=== PATIENT | female | born 1980 | race Caucasian/White ===

== ENCOUNTER 2016-07-26 18:42 | Emergency (ER) | payer SELFPAY ==
[~2016-07-26] VITALS: Ht 167.6 cm; Wt 104.5 kg
[~2016-07-26 18:42] MED LIST: CEPH-460 PO; IBUP800T23 PO; METF500T PO; VENTAER INH
[2016-07-26 18:45] VITALS: BP 147/83; PULSE 97; RESP 18; TEMP 97.5; O2SAT 95
[2016-07-26] MEDS ORDERED: ORPHENADRINE INJ 60 MG/2 ML AMP IM ONE (19:30)
[2016-07-26] MEDS ORDERED: KETOROLAC TROMETHAMINE 60 MG/2 ML (IM) VIAL IM ONE (19:30)
[2016-07-26] MEDS ORDERED: LIDO5DIS35 TOPICAL (19:36)
[2016-07-26] MEDS ORDERED: DICL75TA PO (19:36)
[2016-07-26] MEDS ORDERED: BACL10TA PO (19:36)
--- NOTE | 2016-07-26 19:56 | PD ---
HPI Chief Complaint: Back/ Neck Pain or Injury Time Seen by Provider: 19:30 Travel History International Travel<30 days: No Contact w/Intl Traveler<30days: No Traveled to known affect area: No History of Present Illness HPI This is a 35-year-old female who presents for evaluation of left lower back pain. She reports that yesterday she was changing the sheets on her bed, bending over, when she began developing a sharp pain in her left lower back and tailbone region. The pain is a sharp pain that is worse with movement such as lying down, sitting up. She denies any bowel or bladder incontinence or saddle anesthesia, abdominal pain, nausea or vomiting. She has tried using over-the- counter medications for symptom relief but symptoms persisted which prompted evaluation. She does note a history of kidney stones but this pain does not feel similar, no hematuria, no flank pain. She has no other complaints at this time. PFSH Past Medical History Anemia: Yes Cardiovascular Problems: Yes Diabetes: Yes Patient Takes Glucophage: No Diminished Hearing: No Hypertension: Yes Respiratory: Yes (asthma) Immunizations Current: Yes Tetanus Vaccination: Unknown Influenza Vaccination: Yes ?: Unknown LMP: 06/07/16 Menopausal: Yes Ovarian Cysts: Yes Dilation and Curettage (D&C): Yes Past Surgical History Cholecystectomy: Yes (2005) Gynecologic Surgery: Yes (OVARIAN AND UTERINE CYST REMOVAL) Social History Alcohol Use: No Tobacco Use: No Substance Use: No Allergies-Medications (Allergen,Severity, Reaction): Coded Allergies: Augmentin (Verified Allergy, Severe, 07/26/16) Ciprofloxacin (Verified Allergy, Severe, Swelling THROAT, 07/26/16) Dilaudid (Verified Allergy, Severe, 07/26/16) Morphine (Verified Allergy, Severe, SWELLING OF THROAT, RESP. DEPPRESSION , 07/26/16) Penicillin (Verified Allergy, Severe, Swelling, 07/26/16) Vaccines (Porcine) (Verified Allergy, Severe, SWELLING OF EXTREMITY, ) PRESERVATIVE CAUSES A REACTION Zithromax (Verified Allergy, Severe, RASH, REDDNESS, 07/26/16) Doxycycline (Verified Allergy, Intermediate, vomiting, 07/26/16) Cortisone (Verified Adverse Reaction, Unknown, 07/26/16) increases sugar Reported Meds & Prescriptions Reported Meds & Active Scripts Active Lidoderm Patch 12 HR (Lidocaine) 5% Patch 1 Patch TOPICAL DAILY Remove patch after 12 hours Baclofen 10 Mg Tab 10 Mg PO Q8HR PRN [address] (Diclofenac Sodium) 75 Mg Tabdr 75 Mg PO BID 10 Days Review of Systems Except as stated in HPI: all other systems reviewed are Neg Physical Exam Narrative GENERAL: This is a well-developed well-nourished female who appears to be in some pain. Her vital signs have been reviewed. SKIN: Warm and dry. There is no bruising or soft tissue swelling. HEAD: Atraumatic. Normocephalic. CARDIOVASCULAR: Regular rate and rhythm. No murmur appreciated. RESPIRATORY: No accessory muscle use. Clear to auscultation. Breath sounds equal bilaterally. GASTROINTESTINAL: Abdomen soft, non-tender, nondistended. MUSCULOSKELETAL: No obvious deformities. There is no thoracic or lumbar midline tenderness. There is tenderness to palpation of the left lumbar paravertebral musculature and left buttocks musculature. Patient retains full range of motion of the lower extremities. She has pain when lying down and sitting up. There is no CVA tenderness. NEUROLOGICAL: Awake and alert. No obvious cranial nerve deficits. Motor grossly within normal limits. Normal speech. Data Data Last Documented VS Vital Signs Date Time Temp Pulse Resp B/P Pulse Ox O2 Delivery O2 Flow Rate FiO2 07/26/16 18:45 97.5 97 18 147/83 95 Room Air Orders Ketorolac Inj (Toradol Inj) (07/26/16 19:30) Orphenadrine Inj (Norflex Inj) (07/26/16 19:30) MDM Medical Decision Making Medical Screen Exam Complete: Yes Emergency Medical Condition: Yes Medical Record Reviewed: Yes Differential Diagnosis Lumbar strain, lumbar spasm, herniated nucleus pulposus, spinal stenosis, renal stone, AAA Narrative Course This is a 35-year-old female who developed left lower back pain after bending over to change her bed sheets yesterday. There was no trauma. On examination she has tenderness to palpation in the left lumbar paravertebral musculature, left buttocks musculature in the sacroiliac region that is reproducible with bending over, lying down, certainly consistent with a lumbar strain by history and examination. She has no symptoms to suggest spinal cord injury. She has no symptoms or examination findings to suggest a lumbar fracture. Renal stone was considered as well as given her history of renal stones however her symptoms and history do not suggest this. The plan was to treat the patient symptomatically with muscle relaxants, NSAIDs, Lidoderm patches. The patient's was requesting x-ray or MRI imaging to "make sure nothing is wrong." I explained the purpose of both of these tests and how neither one of them would help diagnose the current issue as there is no evidence of spinal cord injury or bony injury based on the history or examination. The patient's requested to speak to my attending physician and so Dr. Montalvo examined the patient as well and agrees with the treatment plan as laid out. I did discuss how the mechanism of injury has caused this pain and I recommended body corporate manager changes that would help prevent lower back strains in the future. We also discussed symptoms that would warrant return to the emergency room. Otherwise the patient can follow up with her primary care physician. She will be given a note for work as she works as a housekeeper/laundry assistant. Diagnosis Primary Impression: Lumbar strain Qualified Code: S39.012A - Lumbar strain, initial encounter Referrals: Primary Care Physician Departure Forms: Tests/Procedures, Work Release Enter return to work date: Jul 29, 2016 Additional Instructions: As discussed, avoid activities that increase pressure in her lower back such as bending over, slouching while sitting. When lifting left utilizing a squatting position. Avoid heavy lifting or strenuous activity. Use the medication as needed. Do not drive or drink alcohol when taking baclofen. Take diclofenac with meals. Follow-up with your primary care physician in one to 2 weeks. If you develop radicular symptoms such as pain/tingling radiating down the legs, outpatient nonemergent MRI imaging may be useful to help with diagnosis although many time the symptoms resolve on their own. As discussed, lumbar strains can take some time to heal. Signs and symptoms that would warrant returning to the emergency room include incontinence of urine/stool, weakness in the extremities. Med/Other Pt SpecificInfo: Prescription(s) given Scripts Lidocaine Patch 12 HR (Lidoderm Patch 12 HR)5% Patch1 Patch TOPICAL DAILY #1 BOX Ref 0 Remove patch after 12 hours Prov:Elisha Montalvo MD 07/26/16 Baclofen 10 Mg Tab10 Mg PO Q8HR PRN (MUSCLE SPASM) 10 Days Ref 0 Prov:Elisha Montalvo MD 1/8/[address] 75 Mg Tabdr75 Mg PO BID 10 Days Ref 0 Prov:Elisha Montalvo MD 07/26/16 Disposition: 01 DISCHARGE HOME Condition: Stable Jatinder Marquez Jul 26, 2016 19:56
== END 2016-07-26 20:06 | disposition home or self-care (01) ==
LOC: NEPB 18:42
DX: S39.012A Strain of muscle, fascia and tendon of lower back, initial encounter (principal); E11.9 Type 2 diabetes mellitus without complications; I10 Essential (primary) hypertension; Z87.442 Personal history of urinary calculi; Z86.2 Personal history of diseases of the blood and blood-forming organs and certain disorders involving the immune mechanism; Z87.09 Personal history of other diseases of the respiratory system; X50.1XXA Overexertion from prolonged static or awkward postures, initial encounter
CPT/HCPCS: 96372; 99283; J1885; J2360

== ENCOUNTER 2017-02-05 19:39 | Emergency (ER) | payer SELFPAY ==
[~2017-02-05] VITALS: Ht 167.6 cm; Wt 104.5 kg
[~2017-02-05 19:39] MED LIST changes: +BACL10TA PO; -CEPH-460 PO; +DICL75TA PO; -IBUP800T23 PO; +LIDO5DIS35 TOPICAL; -METF500T PO; -VENTAER INH
[2017-02-05 19:41] VITALS: BP 168/93; PULSE 75; RESP 18; TEMP 97.7; O2SAT 100
[2017-02-05] MEDS ORDERED: ALBUAER3 INH (20:38)
--- NOTE | 2017-02-05 21:14 | PD ---
HPI Chief Complaint: Respiratory Distress Time Seen by Provider: 21:10 Travel History International Travel<30 days: No Contact w/Intl Traveler<30days: No Traveled to known affect area: No History of Present Illness HPI Patient comes in complaining of shortness of breath ongoing for 6 days. Patient states she does have a history of asthma initially felt similar however is getting progressively worse. Patient was seen at different ER 6 days ago was told she had bronchitis and to use her nebulizer. Patient states she's been doing this however symptoms are not getting better and feels that they're getting worse. Patient reports associated dry cough, fever of 101, and dyspnea on exertion. Patient denies any edema, chest pain, abdominal pain, loss change in bowel or bladder, nausea, vomiting, neck pain, sore throat, headache, or numbness or tingling anywhere. PFSH Past Medical History Anemia: Yes Asthma: Yes Cardiovascular Problems: Yes Diabetes: Yes Patient Takes Glucophage: No Diminished Hearing: No Hypertension: Yes Kidney Stones: Yes Respiratory: Yes (ASTHMA) Immunizations Current: Yes Tetanus Vaccination: Unknown Influenza Vaccination: Yes ?: Not Menopausal: Yes Ovarian Cysts: Yes Dilation and Curettage (D&C): Yes Past Surgical History Cholecystectomy: Yes (2005) Gynecologic Surgery: Yes (OVARIAN AND UTERINE CYST REMOVAL) Other Surgery: Yes (R BREST TUMOR REMOVED 2007) Social History Alcohol Use: No Tobacco Use: No Substance Use: No Allergies-Medications (Allergen,Severity, Reaction): Coded Allergies: Augmentin (Verified Allergy, Severe, 02/05/17) Ciprofloxacin (Verified Allergy, Severe, Swelling THROAT, 02/05/17) Dilaudid (Verified Allergy, Severe, 02/05/17) Erythromycin (Verified Allergy, Severe, Rash, 02/05/17) Flu Vaccine (Verified Allergy, Severe, Rash, 02/05/17) Morphine (Verified Allergy, Severe, SWELLING OF THROAT, RESP. DEPPRESSION , 02/05/17) Penicillin (Verified Allergy, Severe, Swelling, 02/05/17) Percocet (Verified Allergy, Severe, Rash, 02/05/17) Vaccines (Porcine) (Verified Allergy, Severe, SWELLING OF EXTREMITY, ) PRESERVATIVE CAUSES A REACTION Zithromax (Verified Allergy, Severe, RASH, REDDNESS, 02/05/17) Doxycycline (Verified Allergy, Intermediate, vomiting, 02/05/17) Cortisone (Verified Adverse Reaction, Unknown, 02/05/17) increases sugar Reported Meds & Prescriptions Reported Meds & Active Scripts Active Keflex (Cephalexin) 500 Mg Cap 500 Mg PO Q12H 10 Days Medrol Dosepak (Methylprednisolone) 4 Mg Dspk 4 Mg PO DIRECTED Per Pharmacist direction Reported Proair Hfa 8.5 GM Inh (Albuterol Sulfate) 90 Mcg/Act Aer 2 Puff INH Q4-6H PRN 108 mcg/actuation Review of Systems Except as stated in HPI: all other systems reviewed are Neg Physical Exam Narrative GENERAL: Well-developed, overly nourished, in no acute distress, and non-ill appearing. SKIN: Focused skin assessment warm and dry. HEAD: Atraumatic. Normocephalic. EYES: Pupils equal and round. EOMI. No scleral icterus. No injection or drainage. ENT: No nasal bleeding or discharge. Mucous membranes pink and moist. NECK: Trachea midline. Supple. No nuclear rigidity. CARDIOVASCULAR: Regular rate and rhythm. No murmur appreciated. RESPIRATORY: No accessory muscle use. No respiratory distress. Decreased breath sounds throughout. Breath sounds equal bilaterally. MUSCULOSKELETAL: No obvious deformities. No clubbing. No cyanosis. No edema. Full range of motion. NEUROLOGICAL: Awake and alert. No obvious cranial nerve deficits. Motor grossly within normal limits. Normal speech. PSYCHIATRIC: Appropriate mood and affect; insight and judgment normal. Data Data Last Documented VS Vital Signs Date Time Temp Pulse Resp B/P Pulse Ox O2 Delivery O2 Flow Rate FiO2 02/05/17 22:45 70 18 149/70 98 Room Air 02/05/17 19:41 97.7 Orders Albuterol-Ipratropium Neb (Duoneb Neb) (02/05/17 21:15) Prednisone (Deltasone) (02/05/17 21:15) Chest, Single Ap (02/05/17 ) [facility] Medical Decision Making Medical Screen Exam Complete: Yes Emergency Medical Condition: Yes Interpretation(s) Chest x-ray by the radiologist shows: Normal examination. Differential Diagnosis Asthma exacerbation, CHF exacerbation, pneumonia, pneumothorax, other Narrative Course The patient looks great and improved well with Nebulizer and steroid medication. The patient is moving air well and in no distress nor significant dyspnea, and oxygen saturation is within normal limits. There is no clinical evidence to suggest pneumonia at this time. Diagnosis, plan of care and management were discussed with the patient who agreed with plan and feels better and ready to go home. The patient was instructed to return if worsen, worsening difficulty breathing or wheezing, persistent fever, chest pain or as needed. Patient in no obvious distress upon re-evaluation. All pertinent Radiology result(s) discussed with patient/family. Patient was asked if they wanted to speak to my attending, which the patient did not wish to do at this time. Any questions/concerns in reference to patient diagnosis/condition discussed and clarified prior to patient's discharge. Reinforced sheer importance of close follow up with patient's primary physician or primary care clinic. Instructed patient to return to ED immediately, if symptoms return/worsen. Pt showed understanding of above instructions. Further instructions and recommendations were detailed in discharge paperwork. Pt ambulated without difficulty out of ED at discharge. Diagnosis Primary Impression: Asthma exacerbation Patient Instructions: Asthma (ED), General Instructions Additional Instructions: Follow-up with your primary care physician in 3-5 days for reevaluation. Take all medication as prescribed. Return to the emergency department if symptoms get worse. Med/Other Pt SpecificInfo: Prescription(s) given Scripts Cephalexin (Keflex)500 Mg Iuz667 Mg PO Q12H 10 Days Ref 0 Prov:Mariia Nnuo DO 02/05/17 Methylprednisolone Dosepak (Medrol Dosepak)4 Mg Dspk4 Mg PO DIRECTED #1 DSPK Ref 0 Per Pharmacist direction Prov:Mariia Nuno DO 02/05/17 Disposition: 01 DISCHARGE HOME Condition: Stable Bj Giordano Feb 05, 2017 21:14
[2017-02-05] MEDS ORDERED: RESP: ALBUTEROL 2.5 MG/IPRATROPIUM 0.5 MG NEB (SCH) INH ONE (21:15)
[2017-02-05] MEDS ORDERED: predniSONE 20 MG TAB PO ONE (21:15)
--- NOTE | 2017-02-05 21:41 | RADRPT ---
EXAM DATE/TIME: 02/05/2017 21:34 [facility] COMPARISON: No previous studies available for comparison. INDICATIONS : Shortness of breath for 1 week MEDICAL HISTORY : Asthma SURGICAL HISTORY : None. ENCOUNTER: Initial ACUITY: 1 week PAIN SCORE: 0/10 LOCATION: Bilateral chest FINDINGS: A single view of the chest demonstrates the lungs to be symmetrically aerated without evidence of mas s, infiltrate or effusion. The cardiomediastinal contours are unremarkable. Osseous structures are intact. CONCLUSION: Normal examination. Baljinder Morataya MD on February 05, 2017 at 21:40 Board Certified Radiologist. This report was verified electronically.
[2017-02-05] MEDS ORDERED: MEDR4PAK PO (22:24)
[2017-02-05] MEDS ORDERED: CEPH-460 PO (22:24)
[2017-02-05 22:45] VITALS: BP 149/70; PULSE 70; RESP 18; O2SAT 98
== END 2017-02-05 22:54 | disposition home or self-care (01) ==
LOC: NEPD 19:39
DX: J45.901 Unspecified asthma with (acute) exacerbation (principal); Z88.0 Allergy status to penicillin; E11.9 Type 2 diabetes mellitus without complications; I10 Essential (primary) hypertension
CPT/HCPCS: 71010; 94664; 99284; J7512

== ENCOUNTER 2017-03-02 15:29 | Emergency (ER) | payer SELFPAY ==
[~2017-03-02] VITALS: Ht 167.6 cm; Wt 100.0 kg
[~2017-03-02 15:29] MED LIST changes: +ALBUAER3 INH; -BACL10TA PO; +CEPH-460 PO; -DICL75TA PO; -LIDO5DIS35 TOPICAL; +MEDR4PAK PO
[2017-03-02 15:30] VITALS: BP 155/87; PULSE 81; RESP 16; TEMP 98.7; O2SAT 99
--- NOTE | 2017-03-02 15:45 | PD ---
Physical Exam Date Seen by Provider: Mar 02, 2017 Time Seen by Provider: 15:43 Narrative 36 YOWF C/O VAG BLEEDING X 2 DAYS. WORSE TODAY. DIZZY AND COLD. NO CP OR SOB. DENIES PREG VS REVIEWED AWAITING BED PLACEMENT Data Data Last Documented VS Vital Signs Date Time Temp Pulse Resp B/P Pulse Ox O2 Delivery O2 Flow Rate FiO2 03/02/17 15:30 98.7 81 16 155/87 99 Room Air MDM Supervised Visit with SELENA: Ulysses Gavin Mar 02, 2017 15:45
[2017-03-02 16:21] LABS: BASOPHIL % 0.2 % (0.0-2.0); EOSINOPHIL # 0.2 TH/MM3 (0-0.4); HEMATOCRIT 44.7 % (35.0-46.0); HEMO FLAGS DIFF FINAL; LYMPH % 30.7 % (9.0-44.0); LYMPHOCYTE # 2.5 TH/MM3 (1.0-4.8); MEAN CELL VOLUME 87.7 FL (80.0-100.0); MEAN CORPUSCULAR HEMOGLOBIN 30.2 PG (27.0-34.0); MEAN CORPUSCULAR HGB CONC 34.4 % (32.0-36.0); MONO % 4.9 % (0.0-8.0); NEUT % 62.2 % (16.0-70.0); PLATELET COUNT 173 TH/MM3 (150-450); RED CELL DISTRIBUTION WIDTH 12.3 % (11.6-17.2); WHITE BLOOD COUNT 8.1 TH/MM3 (4.0-11.0)
[2017-03-02 16:31] LABS: BLOOD, URINE LARGE (NEG); COMMENT (UR) CULTURE INDICATED; CULTURE IF INDICATED CULTURE INDICATED; GLUCOSE,URINE 1000 mg/dL (NEG); KETONE, URINE NEG (NEG); NITRITE,URINE NEG (NEG); SQUAMOUS EPITHELIAL CELL URINE 2 /hpf (0-5)
[2017-03-02 16:35] LABS: URINE COLOR LIGHT-RED (YELLW/STRAW)
[2017-03-02 16:37] LABS: APTT (PATIENT) 25.7 SEC (24.3-30.1); INTERNATIONAL NORMALIZED RATIO 0.9 RATIO
[2017-03-02 16:38] LABS: BICARBONATE 27.9 MEQ/L (21.0-32.0); POTASSIUM 3.6 MEQ/L (3.5-5.1)
[2017-03-02] MEDS ORDERED: HYDR-3533 PO (19:39)
--- NOTE | 2017-03-02 19:41 | PD ---
Data Data Last Documented VS Vital Signs Date Time Temp Pulse Resp B/P Pulse Ox O2 Delivery O2 Flow Rate FiO2 03/02/17 15:30 98.7 81 16 155/87 99 Room Air Orders Complete Blood Count With Diff (03/02/17 15:48) Basic Metabolic Panel (Bmp) (03/02/17 15:48) Prothrombin Time / Inr (Pt) (03/02/17 15:48) Act Partial Throm Time (Ptt) (03/02/17 15:48) Urinalysis - C+S If Indicated (03/02/17 15:48) Ed Urine Pregnancytest Poc (03/02/17 15:48) Urine Culture (03/02/17 16:00) Acetamin-Hydrocod 325-5 Mg ([place] 5-325 (03/02/17 19:45) Labs Laboratory Tests Test 03/02/17 16:00 White Blood Count 8.1 TH/MM3 Red Blood Count 5.10 MIL/MM3 Hemoglobin 15.4 GM/DL Hematocrit 44.7 % Mean Corpuscular Volume 87.7 FL Mean Corpuscular Hemoglobin 30.2 PG Mean Corpuscular Hemoglobin 34.4 % Concent Red Cell Distribution Width 12.3 % Platelet Count 173 TH/MM3 Mean Platelet Volume 10.2 FL Neutrophils (%) (Auto) 62.2 % Lymphocytes (%) (Auto) 30.7 % Monocytes (%) (Auto) 4.9 % Eosinophils (%) (Auto) 2.0 % Basophils (%) (Auto) 0.2 % Neutrophils # (Auto) 5.0 TH/MM3 Lymphocytes # (Auto) 2.5 TH/MM3 Monocytes # (Auto) 0.4 TH/MM3 Eosinophils # (Auto) 0.2 TH/MM3 Basophils # (Auto) 0.0 TH/MM3 CBC Comment DIFF FINAL Differential Comment Prothrombin Time 10.0 SEC Prothromb Time International 0.9 RATIO Ratio Activated Partial 25.7 SEC Thromboplast Time Urine Color LIGHT-RED Urine Turbidity CLEAR Urine pH 5.0 Urine Specific [place] 1.028 Urine Protein TRACE mg/dL Urine Glucose (UA) 1000 mg/dL Urine Ketones NEG mg/dL Urine Occult Blood LARGE Urine Nitrite NEG Urine Bilirubin NEG Urine Urobilinogen LESS THAN 2.0 MG/DL Urine Leukocyte Esterase SMALL Urine RBC /hpf Urine WBC 12 /hpf Urine Squamous Epithelial 2 /hpf Cells Urine Amorphous Sediment RARE Microscopic Urinalysis Comment CULTURE INDICATED Sodium Level 135 MEQ/L Potassium Level 3.6 MEQ/L Chloride Level 102 MEQ/L Carbon Dioxide Level 27.9 MEQ/L Anion Gap 5 MEQ/L Blood Urea Nitrogen 7 MG/DL Creatinine 0.74 MG/DL Estimat Glomerular Filtration 88 ML/MIN Rate Random Glucose 253 MG/DL Calcium Level 8.3 MG/DL [facility] Medical Record Reviewed: Yes Supervised Visit with SELENA: No Narrative Course CBC & BMP Diagram 03/02/17 16:00 Primary care negative Urinalysis reveals hematuria without a UTI The patient is resting comfortably and feels better, is alert and in no distress. The patients results and examination findings were discussed. The repeat examination is unremarkable and benign. The history, exam, diagnostic testing, and current condition do not suggest any significant pathology to warrant further testing, continued ED treatment, admission, or surgical evaluation at this point. The vital signs have been stable. The patient does not have uncontrollable pain, intractable vomiting, or other significant symptoms. The patient's condition is stable and appropriate for discharge. The patient will pursue further outpatient evaluation with a primary care physician or other designated or consulting physician as indicated in the discharge instructions. The patient expressed understanding and was agreeable with this plan. Diagnosis Primary Impression: Dysfunctional uterine bleeding Referrals: [facility] call for appointment Additional Instruction: You have a choice when it comes to health care, and we are glad that you chose [facility]. Hopefully, we have met your expectations on today's visit. You are welcome to return to [facility] at any time, as we are committed to meeting the health care needs of our community. Med/Other Pt SpecificInfo: Prescription(s) given Scripts Hydrocodone-Acetaminophen (Lortab)5-325 Mg Tab1-2 Tab PO Q6H PRN (PAIN SCALE 6 TO 10) #10 TAB Ref 0 Prov:Jesus Lawson MD 03/02/17 Disposition: 01 DISCHARGE HOME Condition: Stable Jesus Lawson MD Mar 02, 2017 19:41
[2017-03-02] MEDS ORDERED: ACETAMINOPHEN/HYDROcodone 325 MG/5 MG TAB PO ONE (19:45)
--- NOTE | 2017-03-18 12:16 | PD ---
HPI Chief Complaint: Bleeding Time Seen by Provider: 19:06 Travel History International Travel<30 days: No Contact w/Intl Traveler<30days: No Traveled to known affect area: No History of Present Illness HPI 36 yo F reports vaginal bleeding for past two days, slightly worse today. Additional complaints include a sensation of dizziness and the sensation of feeling cold. Similar prior episodes reported. No fever. No abnormal vaginal discharge. No modifying factor. Severity moderate. Last menstruation is today. PFSH Past Medical History Anemia: Yes Asthma: Yes Cardiovascular Problems: Yes Diabetes: Yes Diminished Hearing: No Hypertension: Yes Kidney Stones: Yes Respiratory: Yes Immunizations Current: Yes ?: Not LMP: now Menopausal: Yes Ovarian Cysts: Yes Dilation and Curettage (D&C): Yes Past Surgical History Cholecystectomy: Yes (2005) Gynecologic Surgery: Yes (OVARIAN AND UTERINE CYST REMOVAL) Other Surgery: Yes (R BREST TUMOR REMOVED 2007) Social History Alcohol Use: No Tobacco Use: No Substance Use: No Allergies-Medications (Allergen,Severity, Reaction): Coded Allergies: Influenza Virus Vaccines (Unverified Allergy, Severe, Rash, 03/02/17) Pork/Porcine Containing Products (Unverified Allergy, Severe, SWELLING OF EXTREMITY, 03/02/17) PRESERVATIVE CAUSES A REACTION acetaminophen (Unverified Allergy, Severe, Rash, 03/02/17) amoxicillin (Unverified Allergy, Severe, 03/02/17) azithromycin (Unverified Allergy, Severe, RASH, REDDNESS, 03/02/17) ciprofloxacin (Unverified Allergy, Severe, Swelling THROAT, 03/02/17) clavulanic acid (Unverified Allergy, Severe, 03/02/17) erythromycin base (Unverified Allergy, Severe, Rash, 03/02/17) hydromorphone (Unverified Allergy, Severe, 03/02/17) morphine (Unverified Allergy, Severe, SWELLING OF THROAT, RESP. DEPPRESSION, 03/02/17) oxycodone (Unverified Allergy, Severe, Rash, 03/02/17) penicillin G (Unverified Allergy, Severe, Swelling, 03/02/17) doxycycline (Unverified Allergy, Intermediate, vomiting, 03/02/17) cortisone (Unverified Adverse Reaction, Unknown, 03/02/17) increases sugar Reported Meds & Prescriptions Reported Meds & Active Scripts Active Lortab (Hydrocodone-Acetaminophen) 5-325 Mg Tab 1-2 Tab PO Q6H PRN Keflex (Cephalexin) 500 Mg Cap 500 Mg PO Q12H 10 Days Medrol Dosepak (Methylprednisolone) 4 Mg Dspk 4 Mg PO DIRECTED Per Pharmacist direction Reported Proair Hfa 8.5 GM Inh (Albuterol Sulfate) 90 Mcg/Act Aer 2 Puff INH Q4-6H PRN 108 mcg/actuation Review of Systems Except as stated in HPI: all other systems reviewed are Neg General / Constitutional: Positive: Fever Physical Exam Narrative GENERAL: 36 yo F, WNWD, NAD SKIN: Warm and dry. HEAD: Atraumatic. Normocephalic. EYES: Pupils equal and round. No scleral icterus. No injection or drainage. ENT: No nasal bleeding or discharge. Mucous membranes pink and moist. NECK: Trachea midline. No JVD. CARDIOVASCULAR: Regular rate and rhythm. RESPIRATORY: No accessory muscle use. Clear to auscultation. Breath sounds equal bilaterally. GASTROINTESTINAL: Abdomen soft, non-tender, nondistended. Hepatic and splenic margins not palpable. MUSCULOSKELETAL: Extremities without clubbing, cyanosis, or edema. No obvious deformities. NEUROLOGICAL: Awake and alert. No obvious cranial nerve deficits. Motor grossly within normal limits. Five out of 5 muscle strength in the arms and legs. Normal speech. PSYCHIATRIC: Appropriate mood and affect; insight and judgment normal. Data Data Last Documented VS VS reviewed and within acceptable limits Orders Orders Complete Blood Count With Diff (03/02/17 15:48) Basic Metabolic Panel (Bmp) (03/02/17 15:48) Prothrombin Time / Inr (Pt) (03/02/17 15:48) Act Partial Throm Time (Ptt) (03/02/17 15:48) Urinalysis - C+S If Indicated (03/02/17 15:48) Ed Urine Pregnancytest Poc (03/02/17 15:48) Urine Culture (03/02/17 16:00) Acetamin-Hydrocod 325-5 Mg (Sims 5-325 (03/02/17 19:45) Labs Laboratory Tests Test 03/02/17 16:00 White Blood Count 8.1 TH/MM3 Red Blood Count 5.10 MIL/MM3 Hemoglobin 15.4 GM/DL Hematocrit 44.7 % Mean Corpuscular Volume 87.7 FL Mean Corpuscular Hemoglobin 30.2 PG Mean Corpuscular Hemoglobin Concent 34.4 % Red Cell Distribution Width 12.3 % Platelet Count 173 TH/MM3 Mean Platelet Volume 10.2 FL Neutrophils (%) (Auto) 62.2 % Lymphocytes (%) (Auto) 30.7 % Monocytes (%) (Auto) 4.9 % Eosinophils (%) (Auto) 2.0 % Basophils (%) (Auto) 0.2 % Neutrophils # (Auto) 5.0 TH/MM3 Lymphocytes # (Auto) 2.5 TH/MM3 Monocytes # (Auto) 0.4 TH/MM3 Eosinophils # (Auto) 0.2 TH/MM3 Basophils # (Auto) 0.0 TH/MM3 CBC Comment DIFF FINAL Differential Comment Prothrombin Time 10.0 SEC Prothromb Time International Ratio 0.9 RATIO Activated Partial Thromboplast Time 25.7 SEC Urine Color LIGHT-RED Urine Turbidity CLEAR Urine pH 5.0 Urine Specific [place] 1.028 Urine Protein TRACE mg/dL Urine Glucose (UA) 1000 mg/dL Urine Ketones NEG mg/dL Urine Occult Blood LARGE Urine Nitrite NEG Urine Bilirubin NEG Urine Urobilinogen LESS THAN 2.0 MG/DL Urine Leukocyte Esterase SMALL Urine RBC /hpf Urine WBC 12 /hpf Urine Squamous Epithelial Cells 2 /hpf Urine Amorphous Sediment RARE Microscopic Urinalysis Comment CULTURE INDICATED Blood Urea Nitrogen 7 MG/DL Creatinine 0.74 MG/DL Random Glucose 253 MG/DL Calcium Level 8.3 MG/DL Sodium Level 135 MEQ/L Potassium Level 3.6 MEQ/L Chloride Level 102 MEQ/L Carbon Dioxide Level 27.9 MEQ/L Anion Gap 5 MEQ/L Estimat Glomerular Filtration Rate 88 ML/MIN [facility] Medical Decision Making Medical Screen Exam Complete: Yes Emergency Medical Condition: Yes Medical Record Reviewed: Yes Differential Diagnosis anemia, menstruation, DUB, IUP, UTI Narrative Course CBC & BMP Diagram 03/02/17 16:00 Calcium Level 8.3 L UA: hematuria, UTI less likely UA Preg: negative Pt with dysfunctional uterine bleeding. No anemia. Diagnosis Primary Impression: Dysfunctional uterine bleeding Referrals: [facility] call for appointment Patient Instructions: General Instructions, Narcotic given in the ED, Hydrocodone/Acetaminophen (By mouth) Departure Forms: Work Release, Enter return to work date: Mar 05, 2017 Tests/Procedures Additional Instructions: You have a choice when it comes to health care, and we are glad that you chose [facility]. Hopefully, we have met your expectations on today's visit. You are welcome to return to [facility] at any time, as we are committed to meeting the health care needs of our community. Scripts Hydrocodone-Acetaminophen (Lortab) 5-325 Mg Tab 1-2 TAB PO Q6H Y for PAIN SCALE 6 TO 10, #10 TAB 0 Refills Prov: Jesus Lawson MD 03/02/17 Disposition: DISCHARGE HOME Condition: Stable Jesus Lawson MD Mar 18, 2017 12:15
== END 2017-03-02 20:25 | disposition home or self-care (01) ==
LOC: NEPD 15:29
DX: N93.8 Other specified abnormal uterine and vaginal bleeding (principal); R30.0 Dysuria
CPT/HCPCS: 80048; 81001; 84703; 85025; 85610; 85730; 87086; 99283

== ENCOUNTER 2017-05-09 15:35 | Emergency (ER) | payer SELFPAY ==
[~2017-05-09] VITALS: Ht 167.6 cm; Wt 104.5 kg
[~2017-05-09 15:35] MED LIST changes: +HYDR-3533 PO
[2017-05-09 15:36] VITALS: BP 144/89; PULSE 76; RESP 18; TEMP 98; O2SAT 96
--- NOTE | 2017-05-09 16:18 | PD ---
HPI Chief Complaint: Fever Time Seen by Provider: 15:57 Travel History International Travel<30 days: No Contact w/Intl Traveler<30days: No Traveled to known affect area: No History of Present Illness HPI 36-year-old female presents to the emergency room for evaluation of sore throat , fever, and rash. Rash and fever started about 4 days ago. Maximum temperature was 102. Rash is not itchy. Seems to be spreading. It started off in her face and has now gone to her chest and back. Sore throat started today. It is severe and worse with swallowing. Patient has had strep and mono in the past. Patient has been taking Motrin with moderate relief in symptoms. She does not like to take acetaminophen. She denies chest pain or shortness of breath. PFSH Past Medical History Anemia: Yes Asthma: Yes Cardiovascular Problems: Yes Diabetes: Yes Diminished Hearing: No Hypertension: Yes Kidney Stones: Yes Respiratory: Yes Immunizations Current: Yes ?: Not LMP: 04/29/17 Menopausal: Yes Ovarian Cysts: Yes Dilation and Curettage (D&C): Yes Past Surgical History Cholecystectomy: Yes (2005) Gynecologic Surgery: Yes (OVARIAN AND UTERINE CYST REMOVAL) Other Surgery: Yes (R BREST TUMOR REMOVED 2007) Social History Alcohol Use: No Tobacco Use: No Substance Use: No Allergies-Medications (Allergen,Severity, Reaction): Coded Allergies: Influenza Virus Vaccines (Unverified Allergy, Severe, Rash, 03/02/17) Pork/Porcine Containing Products (Unverified Allergy, Severe, SWELLING OF EXTREMITY, 03/02/17) PRESERVATIVE CAUSES A REACTION acetaminophen (Unverified Allergy, Severe, Rash, 03/02/17) amoxicillin (Unverified Allergy, Severe, 03/02/17) azithromycin (Unverified Allergy, Severe, RASH, REDDNESS, 03/02/17) ciprofloxacin (Unverified Allergy, Severe, Swelling THROAT, 03/02/17) clavulanic acid (Unverified Allergy, Severe, 03/02/17) erythromycin base (Unverified Allergy, Severe, Rash, 03/02/17) hydromorphone (Unverified Allergy, Severe, 03/02/17) morphine (Unverified Allergy, Severe, SWELLING OF THROAT, RESP. DEPPRESSION, 03/02/17) oxycodone (Unverified Allergy, Severe, Rash, 03/02/17) penicillin G (Unverified Allergy, Severe, Swelling, 03/02/17) doxycycline (Unverified Allergy, Intermediate, vomiting, 03/02/17) cortisone (Unverified Adverse Reaction, Unknown, 03/02/17) increases sugar Reported Meds & Prescriptions Reported Meds & Active Scripts Active Magic Mouthwash Pediatric/Adult Liq (Lidocaine/Diphenhydr/Alum/Mg/Simeth) 60 Ml Susp 5 Ml SWISH-SWAL ACHS Each 5mL contains: Diphenydramine 4.5mg, Viscous Lidocaine 2% 10mg, Maalox Advanced Regular Strength 2.7ml Lortab (Hydrocodone-Acetaminophen) 5-325 Mg Tab 1-2 Tab PO Q6H PRN Keflex (Cephalexin) 500 Mg Cap 500 Mg PO Q12H 10 Days Medrol Dosepak (Methylprednisolone) 4 Mg Dspk 4 Mg PO DIRECTED Per Pharmacist direction Reported Proair Hfa 8.5 GM Inh (Albuterol Sulfate) 90 Mcg/Act Aer 2 Puff INH Q4-6H PRN 108 mcg/actuation Review of Systems Except as stated in HPI: all other systems reviewed are Neg Physical Exam Narrative GENERAL: Well-nourished, well-developed female in no acute distress. Afebrile. Ambulatory. SKIN: Focused skin assessment warm/dry. Blanching, erythematous maculopapular rash on chest, back, and face. HEAD: Normocephalic. EYES: No scleral icterus. No injection or drainage. NECK: Supple, trachea midline. No JVD or lymphadenopathy. EARS: Bilateral pinnae and external canals appear within normal limits. Bilateral tympanic membranes without erythema, dullness or perforation. ENT: Mucosa pink and moist. Moderate erythema with scant exudates. No edema. No uvular edema. No uvular, palatal, or tonsillar deviation. Airway patent. Nasal turbinates appear normal without nasal blood, purulent drainage or septal hematoma. CARDIOVASCULAR: Regular rate and rhythm without murmurs, gallops, or rubs. RESPIRATORY: Breath sounds equal bilaterally. No accessory muscle use. No crackles, rales, wheezes, or rhonchi. Data Data Last Documented VS Vital Signs Date Time Temp Pulse Resp B/P (MAP) Pulse Ox O2 Delivery O2 Flow Rate FiO2 05/09/17 15:36 98.0 76 18 144/89 (107) 96 Room Air Orders Orders Group A Rapid Strep Screen (05/09/17 16:03) Monoscreen (05/09/17 16:03) Strep Culture (Group A) (05/09/17 16:05) Ed Discharge Order (05/09/17 17:09) Labs Laboratory Tests Test 05/09/17 16:05 Monoscreen NEG MDM Medical Decision Making Medical Screen Exam Complete: Yes Emergency Medical Condition: Yes Medical Record Reviewed: Yes Differential Diagnosis [place], strep, viral pharyngitis, upper respiratory infection, allergic reaction Narrative Course 36-year-old female presents to the emergency room for evaluation of sore throat , fever, and rash. Rash and fever started 4 days ago, sore throat started today. Patient is afebrile and well-appearing in the emergency room. Vital signs stable. Resting comfortably. Throat is moderate erythema with scant exudates. No edema. Patient does have a erythematous micropapular rash to the face and chest. It is blanchable. Rapid strep and mono screen are negative. This is viral pharyngitis and exanthem. Patient told to follow-up with her primary care physician or return for worsening symptoms. She understands and agrees to plan. Diagnosis Primary Impression: Viral pharyngitis Referrals: Primary Care Physician Additional Instructions: Rest and drink plenty of fluids. Magic mouthwash as directed, as needed for pain. Take ibuprofen with food as directed, as needed for pain. Follow-up with a primary care physician. Return to the emergency room for worsening symptoms. Med/Other Pt SpecificInfo: Prescription(s) given Scripts Dapkdddwsdivial-Aqecoyylm-Zjn-Alum-Simeth Liq (Magic Mouthwash Pediatric/Adult Liq) 60 Ml Susp 5 ML SWISH-SWAL ACHS for Mouth sores, #60 ML 0 Refills Each 5mL contains: Diphenydramine 4.5mg, Viscous Lidocaine 2% 10mg, Maalox Advanced Regular Strength 2.7ml Prov: Elisha Montalvo MD 05/09/17 Disposition: 01 DISCHARGE HOME Condition: Stable Stacy Stauffer May 09, 2017 16:18
[2017-05-09] MEDS ORDERED: MAGICPED SWISH-SWAL (17:09)
== END 2017-05-09 17:17 | disposition home or self-care (01) ==
LOC: NEPK 15:35
DX: J02.8 Acute pharyngitis due to other specified organisms (principal); B97.89 Other viral agents as the cause of diseases classified elsewhere; J45.909 Unspecified asthma, uncomplicated; I10 Essential (primary) hypertension; E11.9 Type 2 diabetes mellitus without complications
CPT/HCPCS: 86308; 87081; 87880; 99283

== ENCOUNTER 2017-06-02 15:44 | Emergency (ER) | payer SELFPAY ==
[~2017-06-02] VITALS: Ht 167.6 cm; Wt 108.0 kg
[~2017-06-02 15:44] MED LIST changes: +MAGICPED SWISH-SWAL
[2017-06-02 15:57] VITALS: BP 137/76; PULSE 71; RESP 15; TEMP 97.6; O2SAT 97
[2017-06-02] MEDS ORDERED: IBUPROFEN 600 MG TAB PO ONE (16:45)
--- NOTE | 2017-06-02 17:15 | PD ---
HPI . Ear pressure and pain Chief Complaint: ENT Complaint Time Seen by Provider: 16:19 Travel History International Travel<30 days: No Contact w/Intl Traveler<30days: No Traveled to known affect area: No History of Present Illness HPI 36-year-old female presents emergency department for evaluation of right ear pressure and pain 5 days and left ear pressure and pain 3 days. Patient states she's had a sore throat, runny nose and nasal congestion. Patient states she feels nauseous when she eats but denies any vomiting. Patient's major medical history is diabetes 2 and asthma. Patient states she has intermittent fevers but is afebrile this time. PFSH Past Medical History Anemia: Yes Asthma: Yes Cardiovascular Problems: Yes Diabetes: Yes Patient Takes Glucophage: No Diminished Hearing: No Hypertension: Yes Kidney Stones: Yes Respiratory: Yes Immunizations Current: Yes ?: Not Menopausal: Yes Ovarian Cysts: Yes Dilation and Curettage (D&C): Yes Past Surgical History Cholecystectomy: Yes (2005) Gynecologic Surgery: Yes (OVARIAN AND UTERINE CYST REMOVAL) Other Surgery: Yes (R BREST TUMOR REMOVED 2007) Social History Alcohol Use: No Tobacco Use: No Substance Use: No Allergies-Medications (Allergen,Severity, Reaction): Coded Allergies: Influenza Virus Vaccines (Unverified Allergy, Severe, Rash, 06/02/17) Pork/Porcine Containing Products (Unverified Allergy, Severe, SWELLING OF EXTREMITY, 06/02/17) PRESERVATIVE CAUSES A REACTION acetaminophen (Unverified Allergy, Severe, Rash, 06/02/17) amoxicillin (Unverified Allergy, Severe, 06/02/17) azithromycin (Unverified Allergy, Severe, RASH, REDDNESS, 06/02/17) ciprofloxacin (Unverified Allergy, Severe, Swelling THROAT, 06/02/17) clavulanic acid (Unverified Allergy, Severe, 06/02/17) erythromycin base (Unverified Allergy, Severe, Rash, 06/02/17) hydromorphone (Unverified Allergy, Severe, 06/02/17) morphine (Unverified Allergy, Severe, SWELLING OF THROAT, RESP. DEPPRESSION, 06/02/17) oxycodone (Unverified Allergy, Severe, Rash, 06/02/17) penicillin G (Unverified Allergy, Severe, Swelling, 06/02/17) doxycycline (Unverified Allergy, Intermediate, vomiting, 06/02/17) cortisone (Unverified Adverse Reaction, Unknown, 06/02/17) increases sugar Reported Meds & Prescriptions Reported Meds & Active Scripts Active Review of Systems Except as stated in HPI: all other systems reviewed are Neg Physical Exam Narrative GENERAL: Well-nourished, well-developed 36-year-old female patient in no acute distress. Nontoxic appearing. SKIN: Focused skin assessment warm/dry. HEAD: Normocephalic. Atraumatic. EYES: No scleral icterus. No injection or drainage. ENT: Mucosa pink and moist. No erythema or exudates. No uvular edema. No uvular , palatal, or tonsillar deviation. Airway patent. Nasal turbinates appear hypertrophic without nasal blood, purulent drainage or septal hematoma. EARS: Bilateral pinnae and external canals appear within normal limits. Bilateral tympanic membranes without erythema, dullness or perforation. THROAT: Moderate pharyngeal injection. Airway is patent. NECK: Supple, trachea midline. No JVD or lymphadenopathy. CARDIOVASCULAR: Regular rate and rhythm without murmurs, gallops, or rubs. RESPIRATORY: Breath sounds equal bilaterally. No accessory muscle use. GASTROINTESTINAL: Abdomen soft, non-tender, nondistended. MUSCULOSKELETAL: No cyanosis, or edema. BACK: Nontender without obvious deformity. No CVA tenderness. Data Data Last Documented VS Vital Signs Date Time Temp Pulse Resp B/P (MAP) Pulse Ox O2 Delivery O2 Flow Rate FiO2 06/02/17 15:57 97.6 71 15 137/76 (96) 97 Orders Orders Group A Rapid Strep Screen (06/02/17 16:32) Ibuprofen (Motrin) (06/02/17 16:45) Strep Culture (Group A) (06/02/17 16:38) Ed Discharge Order (06/02/17 17:37) MDM Medical Decision Making Medical Screen Exam Complete: Yes Emergency Medical Condition: Yes Differential Diagnosis Differential diagnoses include but not limited to pharyngitis, URI, otitis media , sinusitis, congestion Narrative Course 36-year-old female presents emergency department for evaluation of right ear pain 5 days and left ear pain 3 days. Patient also complains of sore throat and runny nose. Patient states she gets strep frequently. Rapid strep ordered and pending. Rapid strep is negative. Patient's physical exam is consistent with congestion, both ear and nasal congestion with postnasal drip. Patient will be discharged home with instructions to take daily Claritin and Benadryl at night until symptoms improve. Patient has limited options available for certain prescriptions due to extensive allergies. There is no clinical need for antimicrobial therapy at this time. Patient's is very upset that the patient is not being treated with antimicrobial even though it was explained that his not indicated. Patient given a prescription for Flonase. She said that she has taken that before despite her cortisone allergy. She said that it doesn't really help but she is willing to try it again. Patient's angry and yelling and demanding proper treatment. Dr. Greenwood consulted regarding this case and she agrees with the plan and assessment. Patient given instructions to follow up with an ENT, consumer marketing specialist and primary care or return to the emergency Department with any worsening condition. Diagnosis Primary Impression: Congestion of both ears Additional Impression: Congested nose Referrals: Primary Care Physician Patient Instructions: Earache (ED), General Instructions Additional Instructions: Please return to emergency department if your symptoms return or worsen. Follow up with your primary care provider. Take a daily Claritin to improve symptoms of congestion. May use Benadryl at night to help promote relief of congestion. Benadryl may cause drowsiness. Use uact-qfr-lryxumn ibuprofen or Tylenol as needed for pain or fever. Scripts Fluticasone Nasal [place] (Flonase Nasal [place]) 50 Mcg/Act [place] 50 MCG EACH NARE BID for Allergies, #1 BOTTLE 0 Refills Prov: NatividadHalina 06/02/17 Disposition: 01 DISCHARGE HOME Condition: Stable Halina Henson Jun 02, 2017 17:15
[2017-06-02] MEDS ORDERED: FLUT1SPR5 EACH NARE (17:57)
== END 2017-06-02 18:06 | disposition home or self-care (01) ==
LOC: PHEFT 15:44
DX: H83.8X3 Other specified diseases of inner ear, bilateral (principal); R09.81 Nasal congestion
CPT/HCPCS: 87081; 87880; 99283

== ENCOUNTER 2017-11-09 22:59 | Emergency (ER) | payer SELFPAY ==
[~2017-11-09] VITALS: Ht 167.6 cm; Wt 102.0 kg
[~2017-11-09 22:59] MED LIST changes: -ALBUAER3 INH; -CEPH-460 PO; +FLUT1SPR5 EACH NARE; -HYDR-3533 PO; -MAGICPED SWISH-SWAL; -MEDR4PAK PO
[2017-11-09 23:26] VITALS: BP 147/75; PULSE 89; RESP 16; TEMP 98.2; O2SAT 100
== END 2017-11-10 00:32 | disposition left against medical advice (07) ==
LOC: NED 22:59
DX: L98.9 Disorder of the skin and subcutaneous tissue, unspecified (principal)
CPT/HCPCS: 99281